=== PATIENT | female | born 1980 | race Caucasian/White ===

== ENCOUNTER 2018-12-19 09:19 | Outpatient (CLI) | payer BC, SELFPAY ==
--- NOTE | 2018-12-19 10:30 | DI.US_ITS ---
Predicted Gestational Age: Indication/History: CERVICAL LENGTH, SIZE LESS THAN DATES, PREMATURE CONTRACTIONS, 026.843 31.2 Wks Range: 30.2 to 32.2 Prior US done on: Determined by: First US LMP History X EDC by prior US: 02/18/19 OUTSIDE FACILITY For multiple gestations: Baby PLACENTA: Grade: I Location: Anterior X Posterior PRESENTATION: RT LT LOW LYING PREVIA Cephalic X Trans (Head RT LT ) Varied Breech BIOMETRY: Anatomy Identified: BPD: 82 mm 32.6 wks 4 chamber Heart Heart Rate 133 BPM HC: 295 mm 32.4 wks LVOT Post Fossa AC: 275 mm 31.4 wks RVOT Ventricles FL: 62 mm 32.1 wks Stomach X Nose Bladder X Lips Cisterna Magna: mm CI: 84 Kidneys X Palate Cerebellum: mm 3 vessel cord Spine EFW: 1875 grms 61st % Cord Insertion NS= not seen Composite Age (US) 32.2 wks Many abnormalities cannot be diagnosed. A normal exam does not exclude congenital abnormality. EDC by US 02/11/19 Amniotic Fluid Index: Normal COMMENTS: RUQ: LUQ: RLQ: LLQ: Total: cm Biophysical Profile: Score 0/2 OLLIE (>2cm) Respirations (>30 sec) Body flexion/extension Extremity flexion/extension TOTAL SCORE Routine examination was performed. There is a single living intrauterine gestation. Estimated sonographic age is 32 weeks 2 days. Estimated weight is 1875 grams which is the 61st percentile. The fetus is in the cephalic presentation. heart rate is 133 beats per minute. A complete anatomic evaluation was not performed at this time. The amniotic fluid index is 16 cm. Visually amniotic fluid appears within normal limits. The placenta is anterior without evidence of previa. Cervical length is 4.0 cm.
== END 2018-12-19 09:39 ==
PROVIDERS: PCP Family Medicine; Visit Provider Nurse Practitioner Women's Health
DX: O26.843 Uterine size-date discrepancy, third trimester (principal); O60.03 Preterm labor without delivery, third trimester; Z36.89 Encounter for other specified antenatal screening
CPT/HCPCS: 76816

== ENCOUNTER 2021-05-25 02:23 | Outpatient (CLI) | payer OTHER, SELFPAY ==
--- NOTE | 2021-05-25 | DI.US_ITS ---
Exam(s) US BREAST RT LIMITED MG MAMMO DIAGNOSTIC BI US BREAST LT LIMITED EXAM: MG MAMMO DIAGNOSTIC BI and U/S breast bilateral limited CLINICAL HISTORY: SALEEM BREAST LUMPS, N63.0, RT 1 CM NODULE MEDIAL LOWER QUAD, LT LUMP MEDIALLY. TECHNIQUE: Craniocaudal and mediolateral oblique Full Field Digital Mammography views of the bilater al breast with Computer Aided Diagnosis followed by Tomosynthesis and bilateral limited breast ultras ound. COMPARISON: US US BREAST RT LIMITED from 05/25/2021 US US BREAST LT LIMITED from 05/25/2021 FINDINGS: Mammography/Tomosynthesis: Masses/Architectural Distortion: There is an ovoid nodule seen in the lower outer quadrant of the lef t breast measuring 1.2 cm. No associated microcalcifications are seen. Microcalcifictions: No suspicious pleomorphic-type are seen. Skin Thickening/Nipple Retraction: None. Bilateral limited breast US: Echotexture: Normal appearance of the glandular tissue. Shadowing: No suspicious foci. Cyst: None. Solid lesions: There is a radially oriented homogeneously well-circumscribed hypoechoic nodule at the 7 o'clock position of the left breast 2 cm from the nipple. It measures 1.3 cm transverse by 0.6 cm AP. This appears to correspond to the mammographic abnormality. No posterior acoustic enhancement or shadowing is seen. No cystic or solid masses are seen in the right breast in the area of palpable abnormality. Ductal dilation: None. IMPRESSION: 1. No evidence of malignancy is noted. Well-circumscribed hypoechoic nodule in the left breast corres ponding to the palpable and mammographic abnormality. 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 2. A six-month follow-up left mammogram is recommended for re-evaluation. 3. The findings were discussed with the patient on the date of the examination. BI-RADS Category 3 - 6 month - Probably Benign Finding: Recommend follow-up imaging in 6 months Breast Density - Category C - Heterogeneously dense Breast density Category C or D implies that the patient has dense breast tissue. Dense breast tissue can make it harder to find cancer on a mammogram. Dense breast tissue is also associated with an incr eased risk of breast cancer. This information about the result of the mammogram report was provided to the patient to raise their awareness. Use this report when you speak with the patient about their risks for breast cancer, which includes their family history. At that time, you may recommend additional screening tests (Ultrasoun d or MRI) as these tests may add significant information. A negative radiographic report should not delay biopsy if a dominant or clinically suspicious mass is present. Up to ten percent of cancers are not identified on mammography. A negative report may reinforce clinical impression. Adenosis and dense breasts may obscure an underlying neoplasm. False positive reports average 6 to 10%. Patient will receive a letter notifying them of these results.
== END 2021-05-25 02:43 ==
PROVIDERS: PCP Family Medicine; Visit Provider Nurse Practitioner Family
DX: N63.24 Unspecified lump in the left breast, lower inner quadrant (principal); N60.22 Fibroadenosis of left breast; N63.13 Unspecified lump in the right breast, lower outer quadrant; N64.59 Other signs and symptoms in breast
CPT/HCPCS: 76642; 77062; 77066; G0279

== ENCOUNTER 2021-05-29 01:44 | Outpatient (CLI) | payer OTHER, SELFPAY ==
[2021-05-29 09:48] LABS: ALT 20 U/L (14-59); AST 12 U/L (15-37); Calculated LDL 93 mg/dL (<100); Cholesterol 196 mg/dL (<200); HDL Cholesterol 92 mg/dL (40-60); Triglyceride 55 mg/dL (<150)
== END 2021-05-29 01:45 | disposition home or self-care (01) ==
LOC: LBO 01:44
PROVIDERS: PCP Family Medicine; Visit Provider Nurse Practitioner Family
DX: N60.22 Fibroadenosis of left breast (principal); Z13.220 Encounter for screening for lipoid disorders
CPT/HCPCS: 36415; 80061; 84450; 84460

== ENCOUNTER → 2021-11-24 | Outpatient (CLI) | payer OTHER, SELFPAY ==
--- NOTE | 2021-11-24 | DI.US_ITS ---
Exam(s) MAMMO DIAGNOSTIC UNI US BREAST LT LIMITED EXAM: MAMMO DIAGNOSTIC UNI and U/S breast LT limited CLINICAL HISTORY: ABNL FINDINGS N64.59 6 MO FU. TECHNIQUE: Craniocaudal and mediolateral oblique Full Field Digital Mammography views of the left br east with Computer Aided Diagnosis followed by Tomosynthesis and left breast ultrasound. COMPARISON: Comparison is made with prior examinations. FINDINGS: Mammography/Tomosynthesis: Masses/Architectural Distortion: None seen. Microcalcifictions: No suspicious pleomorphic-type are seen. Skin Thickening/Nipple Retraction: None. Limited left breast US: Echotexture: Normal appearance of the glandular tissue. Shadowing: No suspicious foci. Cyst: None. Solid lesions: The radially oriented hypoechoic bilobed mass at 7 o'clock 2 cm from the nipple is unc hanged. Ductal dilation: None. IMPRESSION: 1. No evidence of malignancy is noted. Stable left breast nodule. 2. A six-month follow-up left mammogram and ultrasound is recommended for re-evaluation. 3. The findings were discussed with the patient on the date of the examination. BI-RADS Category 3 - 6 month - Probably Benign Finding: Recommend follow-up imaging in 6 months Breast Density - Category C - Heterogeneously dense Breast density Category C or D implies that the patient has dense breast tissue. Dense breast tissue can make it harder to find cancer on a mammogram. Dense breast tissue is also associated with an incr eased risk of breast cancer. This information about the result of the mammogram report was provided to the patient to raise their awareness. Use this report when you speak with the patient about their risks for breast cancer, which includes their family history. At that time, you may recommend additional screening tests (Ultrasoun d or MRI) as these tests may add significant information. A negative radiographic report should not delay biopsy if a dominant or clinically suspicious mass is present. Up to ten percent of cancers are not identified on mammography. A negative report may reinforce clinical impression. Adenosis and dense breasts may obscure an underlying neoplasm. False positive reports average 6 to 10%. Patient will receive a letter notifying them of these results.
== END ==
PROVIDERS: PCP Family Medicine; Visit Provider Nurse Practitioner Family
DX: R92.8 Other abnormal and inconclusive findings on diagnostic imaging of breast (principal); N63.20 Unspecified lump in the left breast, unspecified quadrant; R92.2 Inconclusive mammogram
CPT/HCPCS: 76642; 77061; 77065; G0279

== ENCOUNTER 2022-05-29 01:35 | Outpatient (CLI) | payer BC, SELFPAY ==
--- NOTE | 2022-05-29 | DI.MAMMO_ITS ---
Exam(s) MG MAMMO DIAGNOSTIC BI US BREAST LT LIMITED EXAM: MG MAMMO DIAGNOSTIC BI and U/S breast LT limited CLINICAL HISTORY: 6 MO F/U, F/U ABNL MAMMO,R92.8,N64.59,LT BILOBED MASS,. TECHNIQUE: Craniocaudal and mediolateral oblique Full Field Digital Mammography views with Computer Aided Diagnosis followed by Tomosynthesis and left breast ultrasound. COMPARISON: US US BREAST LT LIMITED from 11/24/2021 US US BREAST LT LIMITED from 05/29/2022 FINDINGS: Mammography/Tomosynthesis: Masses/Architectural Distortion: None seen. Microcalcifictions: No suspicious pleomorphic-type are seen. Skin Thickening/Nipple Retraction: None. Limited left breast US: Echotexture: Normal appearance of the glandular tissue. Shadowing: No suspicious foci. Cyst: None. Solid lesions: There has been no change in size or appearance of the bilobed hypoechoic mass at the 7 o'clock position 2 cm from the nipple. Ductal dilation: None. IMPRESSION: 1. No evidence of malignancy is noted. 2. A six-month follow-up left limited breast ultrasound is requested for re-evaluation of the nodule in to documented stability over 2 year period. 3. The findings were discussed with the patient on the date of the examination. BI-RADS Category 3 - 6 month - Probably Benign Finding: Recommend follow-up imaging in 6 months Breast Density - Category C - Heterogeneously dense Breast density Category C or D implies that the patient has dense breast tissue. Dense breast tissue can make it harder to find cancer on a mammogram. Dense breast tissue is also associated with an incr eased risk of breast cancer. This information about the result of the mammogram report was provided to the patient to raise their awareness. Use this report when you speak with the patient about their risks for breast cancer, which includes their family history. At that time, you may recommend additional screening tests (Ultrasoun d or MRI) as these tests may add significant information. A negative radiographic report should not delay biopsy if a dominant or clinically suspicious mass is present. Up to ten percent of cancers are not identified on mammography. A negative report may reinforce clinical impression. Adenosis and dense breasts may obscure an underlying neoplasm. False positive reports average 6 to 10%. Patient will receive a letter notifying them of these results.
== END 2022-05-29 01:55 ==
LOC: DI 01:36
PROVIDERS: PCP Nurse Practitioner Family; Visit Provider Nurse Practitioner Family
DX: R92.8 Other abnormal and inconclusive findings on diagnostic imaging of breast (principal); N63.24 Unspecified lump in the left breast, lower inner quadrant; N60.82 Other benign mammary dysplasias of left breast
CPT/HCPCS: 76642; 77062; 77066; G0279

== ENCOUNTER 2022-06-26 12:37 | Outpatient (REF) | payer BC, SELFPAY ==
[2022-06-26 15:06] LABS: HGB 13.4 g/dL (11.2-15.7); MCH 31.2 pg (27.0-33.0); MCHC 32.7 % (32.0-36.0); MCV 96 fL (80-95); MPV 10.7 fL (8.0-11.0); Platelet Count 240 10^3/uL (130-400); RBC 4.29 10^6/uL (3.93-5.22); RDW 12.7 % (11.7-14.6); RDW-SD 44.7 fL; WBC 5.78 10^3/uL (4.4-10.8)
[2022-06-26 15:29] LABS: Iron 191 ug/dL (50-170)
[2022-06-26 15:39] LABS: ALT 20 U/L (14-59); AST 13 U/L (15-37); Albumin 4.4 g/dL (3.4-5.0); Alkaline Phosphatase 42 U/L (46-116); BUN 11 mg/dL (7-18); Bilirubin, Total 0.8 mg/dL (0.2-1.0); CREATININE 0.8 mg/dL (0.55-1.02); Chloride 104 mmol/L (98-107); Estimated GFR 96.06 (mL/min/1.73m2); Glucose 98 mg/dL (74-106); Potassium 3.8 mmol/L (3.5-5.1); Sodium 141 mmol/L (136-145); TSH (W/Ref FT4) 0.97 uIU/mL (0.36-3.74); Total Protein 7.5 g/dL (6.4-8.2)
== END 2022-06-26 12:38 | disposition home or self-care (01) ==
LOC: NCHCN 12:37
PROVIDERS: PCP Nurse Practitioner Family; Visit Provider Nurse Practitioner Family
DX: R00.2 Palpitations (principal); Z00.00 Encounter for general adult medical examination without abnormal findings
CPT/HCPCS: 80053; 85027; 83540; 84443

== ENCOUNTER 2023-06-05 02:46 | Outpatient (CLI) | payer BC, SELFPAY ==
[2023-06-05 13:02] LABS: HCT 39.3 % (36.0-46.0); HGB 13.2 g/dL (11.2-15.7); MCH 31.5 pg (27.0-33.0); MCHC 33.6 % (32.0-36.0); MCV 94 fL (80-95); MPV 9.5 fL (8.0-11.0); Platelet Count 272 10^3/uL (130-400); RBC 4.19 10^6/uL (3.93-5.22); RDW 12.5 % (11.7-14.6); RDW-SD 43.5 fL; WBC 7.75 10^3/uL (4.4-10.8)
[2023-06-05 14:02] LABS: Iron 71 ug/dL (50-170); Total Iron Binding Capacity 342 ug/dL (250-450); Transferrin Sat 21 % (15-50)
[2023-06-05 14:14] LABS: Ferritin 15 ng/mL (8-252); Folate > 20.0 ng/mL (8.6-20.0); Vitamin B12 416 pg/mL (193-986)
[2023-06-05 14:44] LABS: Vitamin D 25 Total 32.8 ng/mL (30-100)
== END 2023-06-05 02:47 | disposition home or self-care (01) ==
LOC: LBO 02:46
PROVIDERS: PCP Nurse Practitioner Family; Visit Provider Naturopath
DX: R58 Hemorrhage, not elsewhere classified (principal); E55.9 Vitamin D deficiency, unspecified
CPT/HCPCS: 36415; 82306; 85027; 82607; 82728; 82746; 83540; 83550

== ENCOUNTER → 2023-06-11 02:21 | Outpatient (CLI) | payer BC, SELFPAY ==
--- NOTE | 2023-06-11 | DI.MAMMO_ITS ---
Exam(s) US BREAST LT LIMITED MG MAMMO DIAGNOSTIC BI EXAM: MAMMO DIAGNOSTIC BI and U/S breast LT limited CLINICAL HISTORY: 6 MO F/U,ABNL BREAST FINDINGS,N64.59. TECHNIQUE: Craniocaudal and mediolateral oblique Full Field Digital Mammography views with Computer Aided Diagnosis followed by Tomosynthesis and left breast ultrasound. COMPARISON: Comparison is made with prior examinations. FINDINGS: Mammography/Tomosynthesis: Masses/Architectural Distortion: No suspicious nodules or areas of architectural distortion are ident ified. Microcalcifictions: No suspicious pleomorphic-type are seen. Skin Thickening/Nipple Retraction: None. Limited left breast US: Echotexture: Normal appearance of the glandular tissue. Shadowing: No suspicious foci. Cyst: None. Solid lesions: The bilobed hypoechoic nodule at the 7 o'clock position of the left breast 2 cm from t he nipple is unchanged. It measures 1.7 x 0.8 x 1.6 cm. Ductal dilation: None. IMPRESSION: 1. No evidence of malignancy is noted. The left breast nodule has been stable for 2 years. This like ly reflects a benign lesion such as a fibroadenoma. 2. Unless there is more urgent need, follow-up screening mammography is recommended, as per [place] [employer] guidelines. 3. The findings were discussed with the patient on the date of the examination. BI-RADS Category 2 - Benign Findings Breast Density - Category D - Extremely dense Breast density Category C or D implies that the patient has dense breast tissue. Dense breast tissue can make it harder to find cancer on a mammogram. Dense breast tissue is also associated with an incr eased risk of breast cancer. This information about the result of the mammogram report was provided to the patient to raise their awareness. Use this report when you speak with the patient about their risks for breast cancer, which includes their family history. At that time, you may recommend additional screening tests (Ultrasoun d or MRI) as these tests may add significant information. A negative radiographic report should not delay biopsy if a dominant or clinically suspicious mass is present. Up to ten percent of cancers are not identified on mammography. A negative report may reinforce clinical impression. Adenosis and dense breasts may obscure an underlying neoplasm. False positive reports average 6 to 10%. Patient will receive a letter notifying them of these results.
== END ==
PROVIDERS: PCP Nurse Practitioner Family; Visit Provider Nurse Practitioner Family
DX: N64.59 Other signs and symptoms in breast (principal); Z12.31 Encounter for screening mammogram for malignant neoplasm of breast
CPT/HCPCS: 76642; 77062; 77066; G0279

== ENCOUNTER 2023-11-12 03:37 | Outpatient (CLI) | payer BC, SELFPAY ==
[2023-11-12 08:59] LABS: HCT 42.3 % (36.0-46.0); HGB 14.5 g/dL (11.2-15.7); MCH 32.2 pg (27.0-33.0); MCHC 34.3 % (32.0-36.0); MCV 94 fL (80-95); Platelet Count 254 10^3/uL (130-400); RBC 4.51 10^6/uL (3.93-5.22); RDW 12.5 % (11.7-14.6); RDW-SD 43.2 fL; WBC 6.89 10^3/uL (4.4-10.8)
[2023-11-12 10:04] LABS: Ferritin 18 ng/mL (8-252); Vitamin B12 633 pg/mL (193-986); Vitamin D 25 Total 42.3 ng/mL (30-100)
[2023-11-12 10:08] LABS: Folate > 20.0 ng/mL (8.6-20.0)
[2023-11-12 10:17] LABS: Iron 165 ug/dL (50-170); Total Iron Binding Capacity 342 ug/dL (250-450); Transferrin Sat 48 % (15-50)
[2023-11-13 09:14] LABS: Homocysteine 6.4 umol/L (5.0-13.9)
== END 2023-11-12 03:38 | disposition home or self-care (01) ==
PROVIDERS: PCP Nurse Practitioner Family; Visit Provider Naturopath
DX: F41.1 Generalized anxiety disorder (principal); E61.1 Iron deficiency; E55.9 Vitamin D deficiency, unspecified
CPT/HCPCS: 36415; 82306; 83090; 85027; 82607; 82728; 82746; 83540; 83550

== ENCOUNTER 2024-07-07 10:50 | Outpatient (REF) | payer BC, SELFPAY ==
--- NOTE | 2024-07-07 09:30 | PAPFT_PTH ---
PATIENT: Neris Ford LOC: [facility] U#:[id number] AGE/SX: 43/F ROOM: RE07/07/[address]: Alley Eric : 1980 BED: DIS: 07/07/2024 SPEC #: [id number] RECD: 07/07/24 17:45 STATUS: EMMANUEL REQ #: [id number] DAYANA: 07/07/24 09:[address]: Alley Eric DEPT: [facility] Cytology RECD BY: Cintia Matthews Tissues: 1 - CX/ENDOCX FOR PAP SMEARS Procedures: PAP THIN PREP/UVM Screening HPV DNA PROBE Comments: [id number] (HPV 16 & 18/45)
== END 2024-07-07 10:51 | disposition home or self-care (01) ==
LOC: NCHCN 10:50
PROVIDERS: PCP Nurse Practitioner Family; Visit Provider Nurse Practitioner Family
DX: Z11.51 Encounter for screening for human papillomavirus (HPV) (principal); Z01.419 Encounter for gynecological examination (general) (routine) without abnormal findings
CPT/HCPCS: 88142; 87624

== ENCOUNTER 2024-10-19 02:37 | Outpatient (CLI) | payer BC, SELFPAY ==
--- NOTE | 2024-10-19 | DI.MAMMO_ITS ---
Exam(s) MAMMO SCREENING EXAM: MAMMO SCREENING CLINICAL HISTORY: screening Z12.39. TECHNIQUE: Bilateral full field digital CC and MLO mammographic images were obtained with 3D tomosynthesis and utilizing computer aided detection (CAD). COMPARISON: 2021 through 2023 FINDINGS: Masses: Stable circumscribed nodule in the inferior left breast. No suspicious masses. Architectural Distortion: None seen. Microcalcifications: No suspicious pleomorphic-type are seen. Skin Thickening/Nipple Retraction: None. IMPRESSION: 1. No significant interval change with no specific features of malignancy noted. 2. Unless there is more urgent need, annual screening mammography is recommended, as per [place] [employer] guidelines. BI-RADS Category 2 - Benign Findings Breast Density - Category D - The breast are extremely dense, which lowers the sensitivity of the mammography. Breast density Category C or D implies that the patient has dense breast tissue. Dense breast tissue can make it harder to find cancer on a mammogram. Dense breast tissue is also associated with an increased risk of breast cancer. This information about the result of the mammogram report was provided to the patient to raise their awareness. Use this report when you speak with the patient about their risks for breast cancer, which includes their family history. At that time, you may recommend additional screening tests (Ultrasound or MRI) as these tests may add significant information. A negative radiographic report should not delay biopsy if a dominant or clinically suspicious mass is present. Up to ten percent of cancers are not identified on mammography. A negative report may reinforce clinical impression. Adenosis and dense breasts may obscure an underlying neoplasm. False positive reports average 6 to 10%. Patient will receive a letter notifying them of these results.
== END 2024-10-19 02:57 ==
LOC: DI 02:37
PROVIDERS: PCP Nurse Practitioner Family; Visit Provider Nurse Practitioner Family
DX: Z12.31 Encounter for screening mammogram for malignant neoplasm of breast (principal); R92.343 Mammographic extreme density, bilateral breasts; D24.2 Benign neoplasm of left breast
CPT/HCPCS: 77063; 77067